=== PATIENT | male | born 1985 | race American Indian/Alaskan Native ===

== ENCOUNTER 2020-04-02 20:24 | Emergency (ER) | payer SELFPAY ==
[2020-04-02 20:46] VITALS: BP 138/96
[2020-04-02 20:58] LABS: Basophils % (Auto) 0.9 % (0.0-1.8); Eosinophils % (Auto) 0.8 % (0.0-4.3); Hematocrit 50.6 % (35.5-45.6); Hemoglobin 17.3 gm/dl (11.8-15.2); Lymphocytes # (Auto) 1.2 K/mm3 (1.2-5.4); Lymphocytes % (Auto) 23.2 % (13.4-35.0); Mean Corpuscular HGB Conc 34 % (32-34); Mean Corpuscular Volume 97 fl (84-94); Monocytes # (Auto) 0.5 K/mm3 (0.0-0.8); Monocytes % (Auto) 8.8 % (0.0-7.3); Platelet Count 176 K/mm3 (140-440); Red Blood Count 5.22 M/mm3 (3.65-5.03); Red Cell Distribution Width 14.2 % (13.2-15.2)
[2020-04-02 21:35] LABS: Alanine Aminotransferase 13 units/L (7-56); Albumin 4.7 g/dL (3.9-5); BUN/Creatinine Ratio 16; Blood Urea Nitrogen 8 mg/dL (9-20); Calcium 9.9 mg/dL (8.4-10.2); Hemolysis Index 37
[2020-04-02 23:17] LABS: Bilirubin,Urine NEG (Negative); Blood,Urine NEG (Negative); Color,Urine Yellow (Yellow); Protein,Urine <15 mg/dL mg/dL (Negative); Urobilinogen,Urine < 2.0 mg/dL (<2.0)
== END 2020-04-02 22:00 | disposition left against medical advice (07) ==
LOC: ED 20:24
DX: I10 Essential (primary) hypertension (principal); Z53.21 Procedure and treatment not carried out due to patient leaving prior to being seen by health care provider
CPT/HCPCS: 36415; 80053; 81001; 85025

== ENCOUNTER 2021-11-20 15:47 | Emergency (ER) | payer SELFPAY ==
[2021-11-20 17:55] VITALS: BP 150/103
[2021-11-20] MEDS ORDERED: ASPIRIN 81 MG TAB CHEW PO ONE (17:56)
== END 2021-11-20 19:00 | disposition left against medical advice (07) ==
LOC: ED 15:47
DX: R07.9 Chest pain, unspecified (principal); Z53.21 Procedure and treatment not carried out due to patient leaving prior to being seen by health care provider
CPT/HCPCS: 93005

== ENCOUNTER 2021-12-10 12:27 | Emergency (ER) | payer SELFPAY ==
--- NOTE | 2021-12-10 13:57 | XRay Report ---
XR chest routine 2V INDICATION / CLINICAL INFORMATION: cp. COMPARISON: None available. FINDINGS: SUPPORT DEVICES: None. HEART /PULMONARY VASCULATURE: No significant abnormality. LUNGS / PLEURA: No significant pulmonary or pleural abnormality. No pneumothorax. ADDITIONAL FINDINGS: No significant additional findings. IMPRESSION: 1. No acute findings. Signer Name: Anthony Mendosa MD Signed: 12/10/2021 1:53 PM Workstation Name: [id number]
[2021-12-10 14:29] LABS: Basophils # (Auto) 0.1 K/mm3 (0.0-0.1); Eosinophils # (Auto) 0.1 K/mm3 (0.0-0.4); Eosinophils % (Auto) 1.9 % (0.0-4.3); Hematocrit 46.8 % (35.5-45.6); Hemoglobin 16.1 gm/dl (11.8-15.2); Lymphocytes # (Auto) 1.6 K/mm3 (1.2-5.4); Mean Corpuscular HGB Conc 34 % (32-34); Mean Corpuscular Volume 98 fl (84-94); Monocytes # (Auto) 0.8 K/mm3 (0.0-0.8); Monocytes % (Auto) 10.9 % (0.0-7.3); Platelet Count 164 K/mm3 (140-440); Red Blood Count 4.79 M/mm3 (3.65-5.03); Red Cell Distribution Width 12.5 % (13.2-15.2)
[2021-12-10 14:53] LABS: Alanine Aminotransferase 21 units/L (7-56); Albumin 4.5 g/dL (3.9-5); Blood Urea Nitrogen 11 mg/dL (9-20); Calcium 9.5 mg/dL (8.4-10.2); Hemolysis Index 5
[2021-12-10 15:06] LABS: BUN/Creatinine Ratio 16
--- NOTE | 2021-12-10 15:07 | Emergency Department Report ---
ED General Adult HPI - General Chief complaint: Chest Pain Stated complaint: CHEST PAINS PUI?: No Time Seen by Provider: 12/10/21 13:42 Source: patient Mode of arrival: Ambulatory Limitations: No Limitations - History of Present Illness Initial comments: This is a 36-year-old male with a past medical history of hypertension who p resents to the ED complaining of midsternal chest pain that began around 12 noon this afternoon. Patient states that it was intermittent pain that was coming and going localized to the midsternal region of the chest. Patient denies any radiating pain anywhere else. Patient denies any shortness of breath, cough, nausea vomiting or diarrhea. Patient also notes that about a month ago he had urinary frequency and dysuria with blood in the urine where he was treated with doxycycline as well as IV medications about a month ago. Patient states that this is not resolved as he is still noticing blood in the urine the past couple days. Patient states that he has been tested for STDs which are negative. Patient does note that he does drink a lot of liquor every day. Severity scale (0 -10): 4 - Related Data Previous Rx's Medication Instructions Recorded Last Taken Type Phenazopyridine [Pyridium] 100 mg PO TID #10 tab 12/10/21 Unknown Rx methOCARBAMOL [Robaxin TAB] 500 mg PO BID #20 tab 12/10/21 Unknown Rx Allergies Allergy/AdvReac Type Severity Reaction Status Date / Time No Known Allergies Allergy Verified 11/20/21 17:56 ED Review of Systems ROS: Stated complaint: CHEST PAINS Other details as noted in HPI Comment: All other systems reviewed and negative ED Past Medical Hx - Past Medical History Previous Medical History?: Yes Hx Hypertension: Yes - Social History Smoking Status: Current Every Day Smoker Substance Use Type: None - Medications Home Medications: Home Medications Medication Instructions Recorded Confirmed Last Taken Type Phenazopyridine [Pyridium] 100 mg PO TID #10 tab 12/10/21 Unknown Rx methOCARBAMOL [Robaxin TAB] 500 mg PO BID #20 tab 12/10/21 Unknown Rx ED Physical Exam - General Limitations: No Limitations General appearance: alert, in no apparent distress - Head Head exam: Present: atraumatic, normocephalic - Eye Eye exam: Present: normal appearance - ENT ENT exam: Present: mucous membranes moist - Neck Neck exam: Present: normal inspection - Respiratory Respiratory exam: Present: normal lung sounds bilaterally. Absent: respiratory distress, wheezes, rales, rhonchi, chest wall tenderness, accessory muscle use - Cardiovascular Cardiovascular Exam: Present: regular rate, normal rhythm. Absent: systolic murmur, diastolic murmur, rubs, gallop - GI/Abdominal GI/Abdominal exam: Present: soft, normal bowel sounds - Rectal Rectal exam: Present: deferred. Absent: black stool - Extremities Exam Extremities exam: Present: normal inspection - Back Exam Back exam: Present: normal inspection, full ROM. Absent: tenderness, CVA tenderness (R), CVA tenderness (L) - Neurological Exam Neurological exam: Present: alert, oriented X3, CN II-XII intact, normal gait - Psychiatric Psychiatric exam: Present: normal affect, normal mood - Skin Skin exam: Present: warm, dry, intact, normal color. Absent: rash ED Course Vital Signs 12/10/21 12/10/21 12/10/21 13:13 14:09 16:19 Temperature 98.2 F 97.9 F Pulse Rate 93 H 76 Respiratory 20 18 20 Rate Blood Pressure 148/98 Blood Pressure 132/89 [Right] O2 Sat by Pulse 99 98 100 Oximetry - Reevaluation(s) Reevaluation #1: Pt sleeping in bed, in no acute distress. No neuro deficit or pain at this time 12/10/21 16:14 ED Medical Decision Making - Lab Data Result diagrams: 12/10/21 13:59 12/10/21 13:59 - EKG Data EKG shows normal: sinus rhythm Rate: tachycardia - EKG Data Interpretation: normal EKG - Radiology Data Radiology results: report reviewed Fluoro Time In Minutes: XR chest routine 2V INDICATION / CLINICAL INFORMATION: cp. COMPARISON: None available. FINDINGS: SUPPORT DEVICES: None. HEART /PULMONARY VASCULATURE: No significant abnormality. LUNGS / PLEURA: No significant pulmonary or pleural abnormality. No pneumothorax. ADDITIONAL FINDINGS: No significant additional findings. IMPRESSION: 1. No acute findings. Signer Name: Fanta Messina MD Signed: 12/10/2021 1:53 PM Workstation Name: [id number] Transcribed By: AYUSH Dictated By: FANTA MESSINA MD Electronically Authenticated By: FANTA MESSINA MD Signed Date/Time: 12/10/21 9427 - Medical Decision Making 36 y o male presents with chest wall pain all labs wnl Pt in no acute distress. Follow up with [employer] recommended Urologist referral given as well. Discussed with pt if any worsening symptoms to return to ED At this time pt is safe for d/c Understands all instructions Critical care attestation.: If time is entered above; I have spent that time in minutes in the direct care of this critically ill patient, excluding procedure time. ED Disposition Clinical Impression: Atypical chest pain, Chest wall pain, Dysuria Disposition: HOME / SELF CARE / HOMELESS Is pt being admited?: No Does the pt Need Aspirin: No Condition: Stable Instructions: Chest Wall Pain, [id number], Nonspecific Chest Pain, Adult, Dysuria Additional Instructions: Make sure to follow up with the primary care physician as discussed. Take all your medications as you've been prescribed. If you have any worsening symptoms or develop new symptoms please return to ED immediately. Prescriptions: Phenazopyridine [Pyridium] 100 mg PO TID #10 tab methOCARBAMOL [Robaxin TAB] 500 mg PO BID #20 tab Referrals: LUCINA TRAN MD [Primary Care Provider] - 3-5 Days [facility] [Provider Group] - 3-5 Days [facility] [Provider Group] - 3-5 Days Forms: Work/School Release Form(ED) Time of Disposition: 16:54
[2021-12-10 16:17] LABS: Bilirubin,Urine NEG (Negative); Blood,Urine NEG (Negative); Color,Urine Colorless (Yellow); Protein,Urine <15 mg/dL mg/dL (Negative); RBC,Urine < 1.0 /HPF (0.0-6.0); Urobilinogen,Urine < 2.0 mg/dL (<2.0)
[2021-12-10 16:19] VITALS: BP 132/89
--- NOTE | 2021-12-11 10:44 | Electrocardiograph Report ---
[facility] Test Date: 2021-12-10 Test Time: 12:33:02 Pat Name: EVI MENDOZA Department: Room: Gender: M [employer]: LOU : 1985 Requested By: MERCY PENG Order Number: [id number] Reading MD: Teodora Meng Measurements Intervals [place] Rate: 103 P: 97 LA: 148 QRS: 23 QRSD: 92 T: 17 QT: 343 QTc: 449 Interpretive Statements Sinus tachycardia Compared to ECG 11/20/2021 16:03:02 Myocardial infarct finding no longer present Electronically Signed On 12-11-2021 10:44:11 EDT by Teodora Meng
== END 2021-12-10 17:13 | disposition home or self-care (01) ==
LOC: ED 12:27
DX: R07.89 Other chest pain (principal); R30.0 Dysuria; I10 Essential (primary) hypertension; F17.200 Nicotine dependence, unspecified, uncomplicated
CPT/HCPCS: 36415; 71046; 80053; 81001; 84484; 85025; 93005; 99284